=== PATIENT | male | born 1955 | race Caucasian/White ===

== ENCOUNTER 2024-06-10 14:55 | Inpatient (IN) | payer BC, SELFPAY ==
[2024-06-10] VITALS (10 sets, daily range): BP systolic 97–151; BP diastolic 59–124; BMI 28.9
--- NOTE | 2024-06-10 12:49 | ED.GENMED ---
History of Present Illness
General
Chief Complaint: Chest Pain
Source: patient
Time Seen by Provider: 06/10/24 12:49
History of Present Illness
History of Present Illness:
This patient is a 69-year-old male presents emergency department complaints of chest pain that started about 45 minutes to an hour prior to presentation. His symptoms continue, rated 10 out of 10. 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
Upon medic arrival, he was given aspirin 324 and nitro x 3 without relief of symptoms. They were unable to establish IV access, was given IM fentanyl and upon presentation here noted to have an inferior wall STEMI. He continues to report pain.
STEMI was called to the watchstander prehospital and I spoke to the watchstander before patient arrival. manager six sigma is now at bedside, Dr. Olivas. Patient has been given variety of appropriate
medications including heparin, Brilinta, nitro, ivf. Pt does note a prior cardiac history, states he hasn't seen cards for many years. He does admit to intermittent cp over the last month, relieved with belching.
Past History
Past History
ED Past Medical History: CAD
Social History
Tobacco: Smoker
Alcohol: Occasional
Drug: None
Personal:
Living: with family
Employment: Employed
Phy Exam
Physical Exam
Physical Exam:
GENERAL: Alert , appears uncomfortable
EYE: pupils equal and reactive
NECK: Supple, no significant adenopathy.
ENT: o/p clr, mmm.
CARDIAC: Regular rate and rhythm .
LUNGS: Clear breath sounds bilaterally, no acute respiratory distress, no wheezes/rales/rhonchi
ABDOMEN: Soft, without focal tenderness, no r/g, no cvat
NEUROLOGICAL: Alert and oriented, no focal neuro deficits
SKIN: Warm and dry, skin intact.
MUSCULOSKELETAL: No edema, well perfused.
PSYCH: Normal and appropriate interaction.
Scores
Heart Score for Chest Pain Patients
STEMI patient?: Yes
Course
Orders/Labs/Results
Orders:
Orders
06/10/24 Lunch
Cholesterol Lowering
At Your Request: Full Participation
Does patient need a safe tray?: No
Cholesterol Lowering: Sodium, 2 Gram
06/10/24 12:45
Electrocardiogram (*1) Urgent
Reason for Study: Chest Pain
EKG- Treatment ONCE
06/10/24 12:46
Complete Blood Count/With Diff Urgent
Comprehensive Metabolic Panel Urgent
Glycohemoglobin (HgbA1c) Urgent
PT/INR [Prothrombin Time] Urgent
Is patient on Coumadin/Warfarin?: No
Comment: [email or web address]
PTT Urgent
Troponin I Urgent
06/10/24 12:53
Heparin 5,000 units .ROUTE .STK-MED ONE
Ticagrelor [Brilinta] 180 mg .ROUTE .STK-MED ONE
06/10/24 13:42
Admit Patient As Directed
Co-Sign Provider:
Level of Care: Inpatient admission
Assign to:: IVU
Physician / Group: GLORIA/Landry
Diagnosis: Inferior STEMI
Reason for Hospitalization: Inferior STEMI, s/p RCA PCI
Expected length of stay greater than two midnights?: Yes
ELOS- Estimated Length of Stay in days: 2
I certify the patient meets the requirements for IP care: Yes
Echo 2D MMode Color/Doppler Urgent
Reason for Study: STEMI
Comment: Landry
Electrocardiogram (*1) Urgent
Reason for Study: Other
Other Reason for Exam: s/p intervention
Comment: gloria
Code Status As Directed
Resuscitation Status: Full Code
CARDIAC REHAB CONSULT Routine
Co-Sign Provider:
Type of Cardiac Rehab Referral: Outpatient
Diagnosis: STEMI
Date of Diagnosis/Surgery: 06/10/24
Referring Provider: Other Provider
Other Referring Provider: landry
Acetaminophen [Tylenol] 650 mg PO Q4HPRN PRN
Activity As Directed
Activity Level: Out of Bed- Chair
Comment: bed/chair rest for 2 hours then out of bed ad oneal
Crop Production Advisor Procedure As Directed
Cardiac Cath Procedure: percutaneous coronary intervention
Intake/ Output As Directed
Frequency: Per unit guidelines
Notify MD As Directed
Notify physician if: immediately for chest pain or bleeding from access site(s)
Radial Artery Hemostasis Method As Directed
Instructions:: 3 mL out at 2 hour posts placement of band
3 mL out at 2 1/2 hours post placement of band
3 mL out at 3 hours post placement of band
Off at 3 1/2 hours post placement of band
If any oozing or hemotoma occurs:: re-inflate band and call provider
Site Checks As Directed
Check access site for bleeding/hematoma: Yes
Comment: on arrival, Q15min x4, Q30min x2, Q1 hr x2, Q2 hr x2, Q4 hr or per
protocol
Vascular Checks As Directed
Location: distal to access site - pulse check
Frequency: Other
Comment: on arrival, Q15min x4, Q30min x2, Q1 hr x2, Q2 hr x2, Q4 hr or per protocol
Vital Signs As Directed
Frequency: Other
Additional Instructions:: on arrival, Q15min x4, Q30min x2, Q1 hr x2, Q2 hr x2, then Q4 hr or per unit
protocol
PRN Pain Medication Management As Directed
May give lesser potent ordered pain med per pt: Yes
preference::
Protocol:: Medication orders for pain may be administered in a
manner that supports deferring to patient preference
when the pt is:
- Requesting an ordered lesser potent pain medication.
Least to most potent pain medications are defined
as: acetaminophen < NSAID < tramadol < opioids
(morphine, oxycodone, hydromorphone).
- Requesting a lesser dose of the same medication IF
ORDERED.
- Requesting a less intrusive route of administration
if both routes are prescribed by the provider (PO <
IV).
DX Deep Vein Thrombosis Video Routine
06/10/24 13:45
Case Management Consult ONCE
Case Management Consult: Other
Comment: brilinta cost
0.9% Sodium Chloride 1000 ml [Nss] 1,000 ml IV PER PROTOCOL
Infusion rate in mL/kg/hr:: 1.5
Infusion rate in mL/hr:: 141
Duration of infusion (hours):: 5
06/10/24 18:00
Troponin I Q6H
Atorvastatin [Lipitor] 80 mg PO QPM
06/10/24 20:00
Ticagrelor [Brilinta] 90 mg PO BID
06/11/24 04:12
Basic Metabolic Panel IN AM
Cardiovascular Evaluation IN AM
Complete Blood Count/No Diff IN AM
Troponin I Q6H
06/11/24 06:00
Electrocardiogram (*1) IN AM
Reason for Study: Other
Other Reason for Exam: s/p intervention
Comment: cbc
06/11/24 08:00
Aspirin Chewable [Low Strength Aspirin] 81 mg PO DAILY
06/11/24 18:00
Enoxaparin Sodium [Lovenox] 40 mg SC QPM
06/12/24 04:26
Basic Metabolic Panel IN AM
Complete Blood Count/No Diff IN AM
06/12/24 06:00
Electrocardiogram (*1) IN AM
Reason for Study: Other
Other Reason for Exam: s/p intervention
Comment: cbc
Abnormal Lab Results
06/10/24 06/10/24 06/10/24
12:46 13:10 13:26
RBC 4.22 L 10^6/uL
(4.70-6.10)
MCV 97.9 H fL
(80.0-94.0)
MCH 33.9 H pg
(27.0-31.0)
Absolute Lymphs (auto) 4.0 H 10^3/uL
(1.2-3.4)
Absolute Monos (auto) 0.7 H 10^3/uL
(0.1-0.6)
Neutrophils % 39.4 L %
(42.2-75.2)
Eosinophils % 6.5 H %
(0-6)
Carbon Dioxide 21 L mmol/L
(22-30)
Glucose 165 H mg/dl
(70-99)
Hemoglobin A1c 6.0 H %
(4.0-5.6)
POC ACT Low Range 285 H Seconds > 397 H Seconds
(116155) (116-155)
06/10/24 06/10/24
13:52 14:21
RBC
MCV
MCH
Absolute Lymphs (auto)
Absolute Monos (auto)
Neutrophils %
Eosinophils %
Carbon Dioxide
Glucose
Hemoglobin A1c
POC ACT Low Range 285 H Seconds 342 H Seconds
(116155) (116-155)
06/10/24 12:46
06/10/24 12:46
Vital Signs
Initial and Last Documented VS:
Initial Vital Signs
Temp Pulse Resp BP Pulse Ox
98.4 F 68 16 147/81 100
06/10/24 12:49 06/10/24 12:49 06/10/24 12:49 06/10/24 12:49 06/10/24 12:49
Last Documented Vital Signs
Temp Pulse Resp BP Pulse Ox
97.5 F 64 18 104/64 98
06/13/24 07:31 06/13/24 08:00 06/13/24 07:31 06/13/24 07:27 06/13/24 07:31
*Critical Care Note
Total Time (30-74mins, 75-104mins- exclusive of procedures): 20
Update Note
Update Note:
Patient presents to the Emergency Department with ___chest pain
Number and Complexity of Problems Addressed at the Encounter
� Chronic conditions affecting care:
� Acute Exacerbation and/or Progression of Chronic Illness:
� Differential Diagnosis includes: But not limited to VA, PE, dissection, etc. etc.
Amount and/or Complexity of Data to be Reviewed and Analyzed
� I performed an independent evaluation of and my interpretation is:
EKG: Read by me both prehospital and in the ED consistent with inferior wall ST elevation VA, reciprocal depressions V1 V2
CT:
Xrays:
Laboratory Studies:
Other:
� Review of other/old records reveals:
� Clinical information was obtained by an independent historian:
� Prescriptions/Medications Considered but not given:
� Further testing considered but not performed:
Risk of Complications and/or Morbidity or Mortality of Patient Management
� Social determinants of health affecting care:
� Discussion with other providers (PCP, Hospitalists, Consultants, etc): Upon d/w medic (and ECG not yet available/transmistted), a STEMI alert prehospital called...upon arrival, I reviewed prehospital ecg which confirms
ifoerior wall STEMI. Before pt arrived, I had already d/w intervent cards, and upon my assessment, given meds, etc he was met by IC at bedside. Pt remained stdable.
� Escalation of care including admission/observation vs risk of discharge considered: 12:54 PM patient going to Crop Production Advisor
ED Attending Note
-
Portions of this chart may have been created with voice recognition software.� Occasional wrong word or��sound alike� substitutions may have occurred due to the inherent limitations of voice recognition software.
Discharge Plan
Departure
Patient Disposition: OPERATIONS TEAM LEADER
Date of Disposition: 06/10/24
Time of Disposition: 12:54
Presentation/result/management discussed w/ accepting MD/DO: Landry
Condition: Fair
Discharge Problem:
ST elevation (STEMI) myocardial infarction
Interventions
Interventions:
*Nursing Disposition Last Done: 06/10/24 13:03
Discharge Date and Time
Discharge Date/Time: 06/10/24 13:04
--- NOTE | 2024-06-10 12:57 | HPS.HSE ---
Addendum entered and electronically signed by George Álvarez MD 06/10/24 16:57:
Patient seen an examined. I agree with the note by ROLANDO Bhagat.
69 year old man with significant cardiac risk factors (HLD, smoking), who was admitted with acute onset chest pain found to have inferior ST elevations, now s/p successful PCI to the culprit 100% mid-RCA and non-culprit iFR positive 60% proximal LAD
stenosis. Case was uncomplicated. He had some mild reperfusion AIVR but was hemodynamically stable throughout. The patient has noted some sub-acute symptoms during exercise over the past month.
Initial labs sent in ER with K 3.7, Creat 1.1, Glucose 165, First troponin 0.026.
He will need DAPT with ASA/ticagrelor for 1 year and aggressive risk factor modification with smoking cessation, optimal blood pressure control, and goal LDL<55. Will start metoprolol tonight. Will consider addition of RASS blockade pending blood
pressure and echo. Check A1c and lipids/Lp(a) in AM.
Original Note:
Family Physician
-
Family Physician: Porter Chapman MD
CDY: None prior to admission/Mehul Álvarez MD
Chief Complaint
-
10/10 chest pain
History of Present Illness
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 He admits to having chest pains in his 20s, and had cardiology workup at the time (stress test and
cath) that was unremarkable and he did not followup with cardiology after that. He does not remember who he saw at the time.
Today, he developed a sudden onset crushing mid sternal chest pain/pressure while at work. EMS was called and was given aspirin and SL NTG without relief of symptoms. Pre-hospital EKG with inferior ST elevations. Brought to ER and given heparin
5000u and brilinta 180mg, brought urgently to label stamper.
Pt admits to intermittent chest pain/indigestion over the past month that was relieved with burping, but that today's pain was the worst ever. He has never had chest pain like this before. He also states he exercises at the gym daily without
symptoms until about a month ago, when he started with his symptoms.
Initial labs sent in ER with K 3.7, Creat 1.1, Glucose 165, First troponin 0.026.
Medical History
Past Medical History
Past Medical History: Reports Hypercholesterolemia (Stopped statin 'a long time ago'- controlled with exercise)
Past Surgical History: Reports None
Social History
Unable to obtain full social history at this time due to: Other (Pt in label stamper)
Tobacco: Smoker (50 pyh- at least 1ppd)
Alcohol: Occasional (Social, 2-3x/week)
Drug: None
Personal:
Living: With Family
Employment: Employed (Works as a chef passenger vessel at [employer] (brother's restaurant))
Family History
Family History: CAD (mother)
Allergies / Home Medications
Allergies reflects when Allergies were last updated in [employer]
Home Medications with original date entered in [employer]
Allergy/Medication List:
Allergies
Allergy/AdvReac Type Severity Reaction Status Date / Time
No Known Allergies Allergy Unverified 06/10/24 12:49
Denies any outpatient meds, supplements, vitamins
Review of Systems
-
Unable to obtain full review of systems at this time due to: Acuity
History Source: Patient
A 12 point ROS was completed and negative except as noted: Yes
Cardiac: Reports Chest Pain
Physical Exam
Vital Signs
Vital Signs
Temp Pulse Resp BP Pulse Ox
98.4 F 68 16 147/81 100
06/10/24 12:49 06/10/24 12:49 06/10/24 12:49 06/10/24 12:49 06/10/24 12:49
Physical Exam
General: Other (Deferred d/t urgent nature of cath)
Laboratory Results
-
06/10/24 12:46
06/10/24 12:46
PT 13.2 Sec (11.4-14.6) 06/10/24 12:46
INR 0.97 06/10/24 12:46
APTT 26.8 Sec (23.4-35.0) 06/10/24 12:46
Laboratory Tests
06/10/24
12:46
Total Bilirubin 0.6
AST 28
ALT 22
Alkaline Phosphatase 91
Troponin I 0.026
Total Protein 7.2
Albumin 4.5
Data Reviewed
-
Medical Tests (Nuc Med, Echo, EKG etc): Image Personally Visualized and interpreted and Report Reviewed by me
Lab Data: Labs Reviewed by me
Impression/Plan
-
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 He admits to having chest pains in his 20s, and had cardiology workup at the time (stress test and
cath) that was unremarkable and he did not followup with cardiology after that. He does not remember who he saw at the time.
Today, he developed a sudden onset crushing mid sternal chest pain/pressure while at work. EMS was called and was given aspirin and SL NTG without relief of symptoms. Pre-hospital EKG with inferior ST elevations. Brought to ER and given heparin
5000u and brilinta 180mg, brought urgently to label stamper.
Pt admits to intermittent chest pain/indigestion over the past month that was relieved with burping, but that today's pain was the worst ever. He has never had chest pain like this before. He also states he exercises at the gym daily without
symptoms until about a month ago, when he started with his symptoms.
Initial labs sent in ER with K 3.7, Creat 1.1, Glucose 165, First troponin 0.026.
IMPRESSION/PLAN:
Acute Inferior STEMI
urgent cath
plan pending cath results
admit IVU/monitor tele
DAPT w/asa, brilinta- cm to check cost
trend toponin to peak
new start beta lisa- monitor BP/Tele
BP soft low 100s- will hold on jaskaran for now
high intensity statin therapy- check lipid profile in AM
echocardiogram in AM
cardiac rehab consult
followup at [facility] in 2 weeks
Hypokalemia- replace K, repeat in AM
Elevated glucose- 165 on chemistry in ER
repeat in AM with HgbA1C
Tobacco abuse- must quit
cessation discussed
[2024-06-10 13:03] LABS: Hematocrit 41.3 % (39.0-52.0); Hemoglobin 14.3 g/dL (13.0-18.0); Mean Corp Hgb Conc. 34.6 g/dL (33.0-37.0); Mean Corpuscular Hgb 33.9 pg (27.0-31.0); Mean Corpuscular Volume 97.9 fL (80.0-94.0); Mean Platelet Volume 8.2 fL (7.4-10.4); Platelet Count 218 10^3/uL (130-400); Red Blood Cell Count 4.22 10^6/uL (4.70-6.10); Red Cell Dist. Width 12.6 % (11.5-14.5); White Blood Cell Count 8.8 10^3/uL (4.8-10.8)
[2024-06-10 13:05] LABS: INR 0.97; PT 13.2 Sec (11.4-14.6)
[2024-06-10 13:06] LABS: APTT 26.8 Sec (23.4-35.0)
[2024-06-10 13:09] LABS: ALT (SGPT) 22 U/L (0-50); AST (SGOT) 28 U/L (17-59); Albumin 4.5 g/dl (3.5-5.0); Alkaline Phosphatase 91 U/L (38-126); Blood Urea Nitrogen 20 mg/dl (9-20); Calcium 9.2 mg/dl (8.4-10.2); Carbon Dioxide 21 mmol/L (22-30); Chloride 102 mmol/L (98-107); Estimated Creatinine Clearance 69 ml/min; Glucose 165 mg/dl (70-99); Potassium 3.7 mmol/L (3.5-5.1); Sodium 136 mmol/L (135-145); Total Bilirubin 0.6 mg/dl (0.2-1.3); Total Protein 7.2 g/dl (6.3-8.2); eGFR > 60.00
[2024-06-10 13:16] LABS: ACT-LR - POC 285 Seconds (116-155)
[2024-06-10 13:20] LABS: Troponin I 0.026 ng/ml
[2024-06-10 13:58] LABS: ACT-LR - POC 285 Seconds (116-155)
[2024-06-10 14:27] LABS: ACT-LR - POC 342 Seconds (116-155)
[2024-06-10 14:39] LABS: % Basophils 0.3 % (0-2); % Eosinophils 6.5 % (0-6); % Immature Granulocytes 0.2 % (0-0.5); % Lymphocytes 45.6 % (20.5-51.1); % Neutrophils 39.4 % (42.2-75.2); Absolute Eosinophils 0.6 10^3/uL (0-0.7); Absolute Monocytes 0.7 10^3/uL (0.1-0.6); Absolute Neutrophils 3.5 10^3/uL (1.4-6.5); Nucleated Red Blood Cells % 0 % (-)
[2024-06-10 15:21] LABS: ACT-LR - POC > 397 Seconds (116-155)
--- NOTE | 2024-06-10 16:04 | CM ---
Chart reviewed. Patient is independent of ADLS, lives with his in a split level home, total of 2 LARRY, 0 DME. Plan is for the patient to return home. CM to follow
--- NOTE | 2024-06-10 16:05 | CM ---
Pricing on Brilinta through the patient's patient's prescription plan is $111.56. Patient is agreeable to cost. It is in stock at the [facility]. Free 30 day coupon placed in the patient's red discharge folder.
--- NOTE | 2024-06-10 16:20 | CARDSERVLU ---
Echocardiogram with Lumason completed after protocol screening completed. Allergies verified.
Patent IV site: _Left FA___
IV site flushed with 0.9% NaCl pre and post administration.
Diluted bolus method utilized to enhance visualization of ventricular hernandez.
Total volume given: _4.0___ mL
Patient tolerated all procedures well without complications.
[2024-06-10] MEDS: LIPITOR 80 MG PO (17:36)
[2024-06-10] MEDS: KCL 20 MEQ PO (17:36)
--- NOTE | 2024-06-10 18:25 | ITS.CL.PN ---
Reinspector - Procedure Note
Procedure
Procedure Note:
CARDIAC CATHETERIZATION REPORT
Date of Procedure: 06/10/2024
Referring: Dr. Kathi De La Torre MD
Indication: Inferior STEMI
PROCEDURE(S)
1. left heart catheterization
2. coronary angiography
3. PCI with ALBERTO to RCA for acute AK
4. IVUS RCA
5. iFR LAD
6. PCI with ALBERTO to LAD
7. IVUS LAD
ACCESS: 6F right radial artery (closure: radial band)
CATHETERS
1. 6F JR4 guide
2. 6F JL3.5 diagnostic
3. 6F EBU3.5 guide
HEMODYNAMIC DATA
LV 126/18 (EDP 23) mmHg
AO 124/72 (mean 93) mmHg
CORONARY ANGIOGRAPHY
Dominance: Right
LM: Large with mild disease.
LAD: Large vessel giving rise to a moderate caliber D1/ramus, moderate caliber D2, and small D3. There is an eccentric 60% stenosis just before the takeoff of D2 and otherwise mild diffuse disease.
LCx: Moderate caliber vessel giving rise to a single small OM1 branch. There are mild luminal irregularities.
RCA: Large vessel giving rise to a moderate caliber RPDA and large RPL system. There is a 100% thrombotic occlusion in the mid RCA.
PCI of RCA
Heparin was administered to achieve ACT greater than 300. The right coronary artery was engaged with a 6 Khmer JR4 guide catheter and a Runthrough coronary wire placed in the distal RPL. Initial lesion preparation was performed with a 2.0x12 mm
semicompliant balloon with bahai of distal flow. The patient experienced AIVR but remained hemodynamically stable. IVUS was performed demonstrating a 3.5 mm reference vessel. Given presence of diffuse high plaque burden coronary disease in
the mid to distal vessel beyond the ruptured plaque, a 3.5 x 38 mm Felix Erie ALBERTO was delivered and deployed at 16 BRENDEN. Angiographic result was excellent. Repeat IVUS demonstrated excellent distal stent edge apposition with no dissection but
room for further expansion of the mid to proximal stent. Post dilation was performed to the 4.0 x 15 mm NC balloon taken to high-pressure from the mid stent back to the proximal edge. Final IVUS demonstrated an excellent result with full
apposition and expansion and no edge dissection. Final angiographic result was excellent. We then turned our attention to the LAD.
iFR of proximal LAD
The LAD was engaged with a 6 Khmer EBU 3.5 guide catheter. An Omni wire was flushing and zeroed outside the body and then advanced to the mid LAD. The wire introducer was removed and the system flush, after which pressure of the wire and guide
were normalized. The wire was advanced to the mid LAD and iFR recorded at 0.89, 0.89, and 0.89. iFR pullback was performed noting a focal pattern of pressure drop at the lesion site. On return to the left main, iFR appropriately normalized to ~1.0,
confirming lack of wire drift. Based on this, the decision was made to proceed with PCI of the proximal LAD.
PCI of LAD
Runthrough wires were placed in the distal LAD and in the D2 for protection. Initial lesion preparation was performed with a 2.0x12 mm semicompliant balloon with full expansion. IVUS was performed demonstrating moderate non-concentric
calcification with a distal reference diameter of 3.5 mm and proximal reference diameter 3.75 mm. A 3.5 x 15 mm Wana Erie ALBERTO was selected and delivered at 16 RBENDEN. On IVUS there was noted to be excellent apposition and expansion of the distal
stent, but underexpansion of the proximal aspect of the stent due to calcium. Post dilation was then performed with a 3.75 x 12 mm NC balloon taken to 18 brenden with full expansion noted. Repeat IVUS demonstrated full apposition and expansion of the
proximal stent edge with no edge dissection. Final angiographic result was excellent. The wire and guide were removed and a TR band placed. The patient was taken to the IVU and stable condition and family updated.
RADIATION: dose 1163 mGy; DAP 85 point Gy*cm2; fluoroscopy time 20.0 min
CONCLUSIONS
1. Two-vessel obstructive coronary artery disease with culprit 100% stenosis of the proximal RCA
2. Successful IVUS-guided and optimized PCI of the culprit proximal RCA occlusion with placement of a 3.5 x 38 mm Wana Erie ALBERTO postdilated proximally with a 4.0 mm NC balloon
3. iFR of the LAD demonstrating significant focal stenosis with iFR 0.89
4. Successful IVUS-guided and optimized PCI of the nonculprit proximal LAD with placement of a 3.5 x 15 mm Wana frontier ALBERTO postdilated proximally with a 3.75 mm NC balloon
RECOMMENDATIONS
1. expectant management after cardiac catheterization via right radial artery approach
2. DAPT with aspirin and ticagrelor for 1 year.
3. Aggressive secondary prevention of coronary artery disease with lipid-lowering targeting goal LDL less than 55, smoking cessation, aggressive hypertension management.
4. Check A1c, lipids, Lp(a)
5. Check echo in AM. RAAS blockade pending blood pressure and results of echo.
6. Low-dose beta-lisa
7. Monitor tele for AIVR
8. Patient requests to follow up with me at [facility] for [facility].
Copy to: Dr. Porter Chapman MD (PCP)
Signed: George Álvarez MD, PhD
[2024-06-10 19:43] LABS: Hepatitis C Antibody Negative (Negative)
[2024-06-10] MEDS: BRILINTA 90 MG PO (21:15)
[2024-06-10] MEDS: LOPRESSOR 25 MG PO (21:15)
[2024-06-11 04:02] VITALS: BP 117/75
[2024-06-11 04:16] VITALS: BMI 28.3
[2024-06-11 04:27] LABS: Hematocrit 39.8 % (39.0-52.0); Hemoglobin 13.7 g/dL (13.0-18.0); Mean Corp Hgb Conc. 34.4 g/dL (33.0-37.0); Mean Corpuscular Hgb 33.6 pg (27.0-31.0); Mean Corpuscular Volume 97.5 fL (80.0-94.0); Mean Platelet Volume 8.5 fL (7.4-10.4); Platelet Count 181 10^3/uL (130-400); Red Blood Cell Count 4.08 10^6/uL (4.70-6.10); Red Cell Dist. Width 12.7 % (11.5-14.5); White Blood Cell Count 8.9 10^3/uL (4.8-10.8)
[2024-06-11 04:47] LABS: Blood Urea Nitrogen 17 mg/dl (9-20); Calcium 9.1 mg/dl (8.4-10.2); Carbon Dioxide 24 mmol/L (22-30); Chloride 106 mmol/L (98-107); Estimated Creatinine Clearance 76 ml/min; Glucose 113 mg/dl (70-99); HDL Cholesterol 44 mg/dl; LDL Cholesterol, Calculated 159 mg/dl; Potassium 4.6 mmol/L (3.5-5.1); Sodium 139 mmol/L (135-145); Total Cholesterol 226 mg/dl (50-199); Triglyceride 119 mg/dl (10-149); Very Low Density Lipoprotein 23 mg/dl (0-30); eGFR > 60.00
--- NOTE | 2024-06-11 05:12 | PTCARENOTE ---
Received pt at change of shift. NSR on tele with HR 50s-60s. Denies CP and SOB. TR band in place at start of shift, removed without complications at 2100, site c/d/i. Activity restrictions discussed and pt verbalizes understanding. Ambulating
independently in room without difficulty. Call landa within reach.
[2024-06-11 07:08] VITALS: BP 101/66
--- NOTE | 2024-06-11 08:02 | PTCARENOTE ---
Patient sitting upright in bed this morning, had just ordered breakfast. Dressing right wrist is dry and intact with radial pulse palpable. Patient had been ambulating in the [place] earlier, is hopeful to go home, feels great.
[2024-06-11] MEDS: BRILINTA 90 MG PO ×2 (08:34→19:56)
[2024-06-11] MEDS: LOPRESSOR 25 MG PO ×2 (08:35→19:57)
[2024-06-11] MEDS: FLUSH (NSS) 1 FLUSH IV (08:35)
[2024-06-11] MEDS: LOW STRENGTH ASPIRIN 81 MG PO (08:35)
--- NOTE | 2024-06-11 10:17 | W.PN.CD ---
Addendum entered and electronically signed by Jan Kumar MD 06/11/24 12:34:
Patient seen and examined in collaboration with BUSINESS DIRECTOR; agree with below.
-The patient was admitted yesterday with an inferior STEMI; ALBERTO placed to mid RCA and proximal LAD.
-Brief runs of NSVT on telemetry.
-Preserved LVEF on echocardiogram (55-60%) with no significant valvulopathy.
-Continue metoprolol tartrate 25 mg twice daily.
-Continue aspirin, Brilinta, and high-dose atorvastatin.
-Continue classroom monitor over the weekend, given brief runs of NSVT.
-Likely discharge to home on Thursday.
Addendum entered and electronically signed by ROLANDO Barreto 06/11/24 10:51:
I personally called his [facility] ([facility] [address] in [place]) and they have a bottle of Brilinta in stock that they will be able to provide him immediately. He was concerned because he got a text that said it wouldn't be ready until Thursday.
Original Note:
Today's Communication / Plan
-
Continue ASA and Brilinta and we discussed the importance of these medicines
Continue statin and BB
Impression / Plan
-
69 year old man with dyslipidemia and smoking who was admitted with acute onset chest pain found to have inferior ST elevations, now s/p successful PCI to the culprit 100% mid-RCA and non-culprit iFR positive 60% proximal LAD stenosis.
STEMI:
-s/p cath two-vessel obstructive coronary artery disease with culprit 100% stenosis of the proximal RCA had uccessful IVUS-guided and optimized PCI of the culprit proximal RCA occlusion with placement of ALBERTO. iFR of the LAD demonstrating
significant focal stenosis with iFR 0.89 and he is s/p successful IVUS-guided and optimized PCI of the nonculprit proximal LAD with ALBERTO.
-continue ASA and Brilinta and we discussed the importance of these medicines
-continue BB and statin
-trop peaked at 104
-echo 1/3/24 showed LVEF is 55-60% by visual estimation. Stage I diastolic dysfunction.
-right radial cath site is stable
Dyslipidemia:
-LDL 159
-LP(a) pending
-now on high-intensity statin- continue
PreDM:
-HGBa1C is 6
-work on diet and follow-up with PCP
Tobacco abuse:
-discussed importance of total cessation and he tells me he is done
NSVT:
-brief, asymptomatic runs
-continue BB and follow
Physical Exam
Vital Signs/Labs
Vital Signs
Temp Pulse Resp BP Pulse Ox
98.8 F 67 18 101/66 98
06/11/24 07:13 06/11/24 10:00 06/11/24 07:13 06/11/24 08:35 06/11/24 07:13
06/10/24 06/11/24 06/12/24
06:59 06:59 06:59
Actual Weight 91.9 kg
06/11/24 04:12
06/11/24 04:12
PT 13.2 Sec (11.4-14.6) 06/10/24 12:46
INR 0.97 06/10/24 12:46
APTT 26.8 Sec (23.4-35.0) 06/10/24 12:46
Triglycerides 119 mg/dl (10-149) 06/11/24 04:12
LDL Cholesterol, Calc 159 mg/dl 06/11/24 04:12
VLDL Cholesterol, Calc 23 mg/dl (0-30) 06/11/24 04:12
HDL Cholesterol 44 mg/dl 06/11/24 04:12
LAB Results
06/10/24 06/10/24 06/10/24
12:46 18:00 23:36
Troponin I 0.026 67.800 H* D 104.000 H* D
06/11/24 06/11/24
04:12 04:12
Troponin I Cancelled 63.400 H* D
Physical Exam
Constitutional: No acute distress
EENT: Anicteric
Cardiovascular: Rhythm & rate is regular
Respiratory: Respiratory effort normal and Lungs clear to auscul.
Neuro/Psych: AO x 3
Other: Cath Site (right radial cath site stable no hematoma)
Data Reviewed
-
Date of Service: June 11, 2024
EKG: Tracing Personally Visualized and interpreted (SB with a PVC) and Other (tele SR)
Medical Tests (PFT, Pathology etc): Report Reviewed by me (as noted )
Labs: Labs Reviewed by me
[2024-06-11 11:32] VITALS: BP 104/70
[2024-06-11 16:27] VITALS: BP 103/76
[2024-06-11] MEDS: LIPITOR 80 MG PO (17:25)
[2024-06-11] MEDS: LOVENOX 40 MG SC (17:28)
[2024-06-11 19:54] VITALS: BP 100/68
[2024-06-11 22:52] VITALS: BP 104/69
[2024-06-12 04:17] VITALS: BP 111/62
[2024-06-12 05:11] LABS: Hematocrit 39.6 % (39.0-52.0); Hemoglobin 14.1 g/dL (13.0-18.0); Mean Corp Hgb Conc. 35.6 g/dL (33.0-37.0); Mean Corpuscular Hgb 34.7 pg (27.0-31.0); Mean Corpuscular Volume 97.5 fL (80.0-94.0); Mean Platelet Volume 8.7 fL (7.4-10.4); Platelet Count 192 10^3/uL (130-400); Red Blood Cell Count 4.06 10^6/uL (4.70-6.10); Red Cell Dist. Width 12.4 % (11.5-14.5); White Blood Cell Count 8.7 10^3/uL (4.8-10.8)
--- NOTE | 2024-06-12 05:32 | PTCARENOTE ---
Pt received at change of shift. NSR on tele with occasional PVCs- HR 50s-70s. Denies CP and SOB. R radial cath site c/d/i and PORFIRIO. Ambulating in halls this AM without difficulty. Pt states he is hopeful to go home today. Call landa within
reach.
[2024-06-12 05:42] LABS: Blood Urea Nitrogen 18 mg/dl (9-20); Calcium 8.8 mg/dl (8.4-10.2); Carbon Dioxide 25 mmol/L (22-30); Chloride 105 mmol/L (98-107); Estimated Creatinine Clearance 76 ml/min; Glucose 114 mg/dl (70-99); Potassium 4.6 mmol/L (3.5-5.1); Sodium 138 mmol/L (135-145); eGFR > 60.00
[2024-06-12 07:01] VITALS: BP 114/80
[2024-06-12] MEDS: LOW STRENGTH ASPIRIN 81 MG PO (08:32)
[2024-06-12] MEDS: BRILINTA 90 MG PO ×2 (08:32→19:31)
[2024-06-12] MEDS: LOPRESSOR 25 MG PO (08:32)
[2024-06-12] MEDS: FLUSH (NSS) 1 FLUSH IV (08:32)
--- NOTE | 2024-06-12 09:54 | W.PN.CD ---
Today's Communication / Plan
-
-Continue ASA and Brilinta.
-LDL was 57 (patient stopped taking his statin at home); continue high-dose atorvastatin 80 mg daily.
-Counseled repeatedly on the importance of smoking cessation.
-Brief asymptomatic runs of NSVT; monitor 1 more day on telemetry.
-Continue current dose of metoprolol tartrate.
-Discharge to home tomorrow morning.
Impression / Plan
-
69 year old man with dyslipidemia and smoking who was admitted with acute onset chest pain found to have inferior ST elevations, now s/p successful PCI to the culprit 100% mid-RCA and non-culprit iFR positive 60% proximal LAD stenosis.
STEMI:
-s/p cath two-vessel obstructive coronary artery disease with culprit 100% stenosis of the proximal RCA had successful IVUS-guided and optimized PCI of the culprit proximal RCA occlusion with placement of ALBERTO. iFR of the LAD demonstrating
significant focal stenosis with iFR 0.89 and he is s/p successful IVUS-guided and optimized PCI of the nonculprit proximal LAD with ALBERTO.
-Brief runs of NSVT noted on telemetry.
-Continue ASA and Brilinta.
-LDL was 57 (patient stopped taking his statin at home); continue high-dose atorvastatin 80 mg daily.
-trop peaked at 104
-Echo 06/10/23 showed LVEF is 55-60% by visual estimation. Stage I diastolic dysfunction.
Dyslipidemia:
-LDL 159
-Now on high-intensity statin-continue .
PreDM:
-HGBa1C is 6.0.
-Counseled on the importance of improving lifestyle/dietary habits.
-Should continue to follow-up with PCP as outpatient.
Tobacco abuse:
-Counseled repeatedly on the importance of smoking cessation.
NSVT:
-Brief asymptomatic runs of NSVT; monitor 1 more day on telemetry.
-Continue current dose of metoprolol tartrate.
Physical Exam
Vital Signs/Labs
Vital Signs
Temp Pulse Resp BP Pulse Ox
97.7 F 63 20 114/80 98
06/12/24 06:59 06/12/24 08:00 06/12/24 06:59 06/12/24 07:01 06/12/24 06:59
06/11/24 06/12/24 06/13/24
06:59 06:59 06:59
Actual Weight 91.9 kg
06/12/24 04:26
06/12/24 04:26
PT 13.2 Sec (11.4-14.6) 06/10/24 12:46
INR 0.97 06/10/24 12:46
APTT 26.8 Sec (23.4-35.0) 06/10/24 12:46
Triglycerides 119 mg/dl (10-149) 06/11/24 04:12
LDL Cholesterol, Calc 159 mg/dl 06/11/24 04:12
VLDL Cholesterol, Calc 23 mg/dl (0-30) 06/11/24 04:12
HDL Cholesterol 44 mg/dl 06/11/24 04:12
LAB Results
06/10/24 06/10/24 06/10/24
12:46 18:00 23:36
Troponin I 0.026 67.800 H* D 104.000 H* D
06/11/24 06/11/24
04:12 04:12
Troponin I Cancelled 63.400 H* D
Physical Exam
Constitutional: No acute distress and Comfortable
EENT: Anicteric
Cardiovascular: Rhythm & rate is regular, Pedal edema is absent, Systolic murmur absent and S1S2 is normal
Respiratory: Respiratory effort normal and Lungs clear to auscul.
GI: Soft
Neuro/Psych: AO x 3
Other: Skin (Warm, dry, intact)
Data Reviewed
-
Date of Service: June 12, 2024
EKG: Report Reviewed by me (Telemetry: Sinus rhythm, brief runs of NSVT)
Echo: Report Reviewed by me (EF 60%, no wall motion abnormality; no significant valvulopathy)
Medical Tests (PFT, Pathology etc): Discussed with Nurse and Discussed with Patient
Labs: Labs Reviewed by me
[2024-06-12 11:29] VITALS: BP 102/69
--- NOTE | 2024-06-12 12:04 | PTCARENOTE ---
Patient seen by cardiology this morning and will observe overnight and discharge home tomorrow. Patient requesting if he can shower, ok as per cardiology for the patient to shower today. Patient oob ambulating in the halls, feels well, denies any
chest pain or sob.
[2024-06-12 16:20] VITALS: BP 109/68
[2024-06-12] MEDS: LIPITOR 80 MG PO (18:12)
[2024-06-12] MEDS: LOVENOX 40 MG SC (18:12)
[2024-06-12 18:14] LABS: Lipoprotein a (Lp a) 27 mg/dL (<=29)
[2024-06-12 19:29] VITALS: BP 93/54
--- NOTE | 2024-06-12 21:10 | PTCARENOTE ---
Pt rec'd at change of shift awake alert 'bored'. sinus on telemetry. no c/o pain or sob. B/P 93/54 ht rate 58-60. Dr Kumar contacted asked about parameters for Lopressor. Order obtained to hold evening dose.
[2024-06-12 22:22] VITALS: BP 108/68
[2024-06-13 03:54] VITALS: BP 110/67
[2024-06-13 07:27] VITALS: BP 104/64
--- NOTE | 2024-06-13 09:00 | W.PN.CD ---
Today's Communication / Plan
-
discharge today on current meds
follow up with [facility] [employer] in several weeks, and with me after that
Impression / Plan
-
69 year old man with dyslipidemia and smoking who was admitted with acute onset chest pain found to have inferior ST elevations, now s/p successful PCI to the culprit 100% mid-RCA and non-culprit iFR positive 60% proximal LAD stenosis.
STEMI:
-s/p cath two-vessel obstructive coronary artery disease with culprit 100% stenosis of the proximal RCA had successful IVUS-guided and optimized PCI of the culprit proximal RCA occlusion with placement of ALBERTO. iFR of the LAD demonstrating
significant focal stenosis with iFR 0.89 and he is s/p successful IVUS-guided and optimized PCI of the nonculprit proximal LAD with ALBERTO.
-Brief runs of NSVT noted on telemetry, imporved over weekend
-Continue ASA and Brilinta.
-LDL was 57 (patient stopped taking his statin at home); continue high-dose atorvastatin 80 mg daily.
-trop peaked at 104, EKG w/ inferior q-waves
-Echo 06/10/23 showed LVEF is 55-60% by visual estimation. Stage I diastolic dysfunction.
Dyslipidemia:
-LDL 159
-Now on high-intensity statin-continue .
-eventual goal <55
PreDM:
-HGBa1C is 6.0.
-Counseled on the importance of improving lifestyle/dietary habits.
-Should continue to follow-up with PCP as outpatient.
Tobacco abuse:
-Counseled repeatedly on the importance of smoking cessation.
NSVT, improved
-Brief asymptomatic runs of NSVT; monitor 1 more day on telemetry.
-Continue current dose of metoprolol tartrate.
Tele with normal sinus rhythm
labs stable
EKG w/ inferior q-waves
feels well walking the halls
Physical Exam
Vital Signs/Labs
Vital Signs
Temp Pulse Resp BP Pulse Ox
36.4 C 64 18 104/64 98
06/13/24 07:31 06/13/24 08:00 06/13/24 07:31 06/13/24 07:27 06/13/24 07:31
06/12/24 04:26
06/12/24 04:26
PT 13.2 Sec (11.4-14.6) 06/10/24 12:46
INR 0.97 06/10/24 12:46
APTT 26.8 Sec (23.4-35.0) 06/10/24 12:46
Triglycerides 119 mg/dl (10-149) 06/11/24 04:12
LDL Cholesterol, Calc 159 mg/dl 06/11/24 04:12
VLDL Cholesterol, Calc 23 mg/dl (0-30) 06/11/24 04:12
HDL Cholesterol 44 mg/dl 06/11/24 04:12
LAB Results
06/10/24 06/10/24 06/10/24
12:46 18:00 23:36
Troponin I 0.026 67.800 H* D 104.000 H* D
06/11/24 06/11/24
04:12 04:12
Troponin I Cancelled 63.400 H* D
Physical Exam
Constitutional: No acute distress
Cardiovascular: Rhythm & rate is regular
Respiratory: Respiratory effort normal
Neuro/Psych: AO x 3
Data Reviewed
-
Date of Service: June 13, 2024
Medical Decision Making: Reviewed Test Results
Labs: Labs Reviewed by me
[2024-06-13] MEDS: LOW STRENGTH ASPIRIN 81 MG PO (09:11)
[2024-06-13] MEDS: LOPRESSOR 25 MG PO (09:11)
[2024-06-13] MEDS: BRILINTA 90 MG PO (09:11)
--- NOTE | 2024-06-13 10:16 | W.DS.TRANS ---
DC Summary - Heart Surgeon
-
Discharge Instructions:
Discharge Diagnosis/Procedures Myocardial infarction, s/p angioplasty and stent
x1 to Right Coronary artery and x1 to Left
Anterior Descending artery, dyslipidemia,
prediabetes
Diet Low Cholesterol,Low Fat,Diabetic, Carb
Controlled
Activity No strenuous activity
Additional Activity For 1 week
Driving Restrictions No driving for 24 hours
Bathing Restrictions OK to Shower
Other Services Cardiac Rehab
Instructions:
Stand-Alone Forms: DC Instructions- Cath/EP Lab
Changes to Home Medications: Yes
Discharge Medications:
DC Medications w/original date entered in [facility]
ticagrelor 90 mg tablet (Brilinta) 90 mg PO BID #180 tabs 06/10/24
aspirin 81 mg chewable tablet 81 mg PO DAILY #0 tabs 06/11/24
atorvastatin 80 mg tablet 80 mg PO QPM #30 tabs 06/11/24
metoprolol tartrate 25 mg tablet 25 mg PO BID #60 tabs 06/11/24
nitroglycerin 0.4 mg sublingual tablet (Nitrostat) 0.4 mg sublingual Q5M PRN chest pain #25 tabs 06/11/24
Home Medication Changes
All medicines are new
Pending Results: No
--- NOTE | 2024-06-13 10:26 | PTCARENOTE ---
Patient ambulating in the [place], VSS, anxious for discharge. Patient seen by Dr. Álvarez and is ok to go home.
[2024-06-13] MEDS: FLUAD (65 yr+) 2024-2025 FORMULA 0.5 ML IM (10:36)
--- NOTE | 2024-06-13 10:51 | PTCARENOTE ---
Reviewed discharge instructions and follow up and he states his understanding. Patient discharged home with his .
== END 2024-06-13 10:45 | disposition home or self-care (01) | DRG 322 ==
LOC: IVU 14:55
PROVIDERS: Nurse Practitioner; ADMITTING PHYSICIAN Student in an Organized Health Care Education/Training Program; EMERGENCY PHYSICIAN Emergency Medicine
PROC: 4A033BC Measurement of Arterial Pressure, Coronary, Percutaneous Approach (ICD-10-PCS; 2024-06-10)
PROC: 027135Z Dilation of Coronary Artery, Two Arteries with Two Drug-eluting Intraluminal Devices, Percutaneous Approach (ICD-10-PCS; 2024-06-10)
PROC: 4A023N7 Measurement of Cardiac Sampling and Pressure, Left Heart, Percutaneous Approach (ICD-10-PCS; 2024-06-10)
PROC: B240ZZ3 Ultrasonography of Single Coronary Artery, Intravascular (ICD-10-PCS; 2024-06-10)
PROC: B2111ZZ Fluoroscopy of Multiple Coronary Arteries using Low Osmolar Contrast (ICD-10-PCS; 2024-06-10)
DX: I21.19 ST elevation (STEMI) myocardial infarction involving other coronary artery of inferior wall (principal); I47.20 Ventricular tachycardia, unspecified; I25.10 Atherosclerotic heart disease of native coronary artery without angina pectoris; F17.200 Nicotine dependence, unspecified, uncomplicated; Z82.49 Family history of ischemic heart disease and other diseases of the circulatory system; Z79.02 Long term (current) use of antithrombotics/antiplatelets; Z79.82 Long term (current) use of aspirin
CPT/HCPCS: 80048; 80053; 80061; 83036; 83695; 84484; 85025; 85027; 85347; 85610; 85730; 86803; 90662; 92978; 92979; 93005; 93306; 93458; 93799; 99284; 99406; C1725; C1753; C1769; C1874; C1894; C9600; G0008; Q9950; Q9967